=== PATIENT | female | born 1965 | race Caucasian/White ===

== ENCOUNTER 2016-11-27 12:01 | Emergency (ER) | payer BC ==
--- NOTE | 2016-11-27 13:07 | Emergency Department Record ---
History of Present Illness - General Chief complaint: ENT Stated complaint: SWOLLEN NECK Time Seen by Provider: 11/27/16 13:06 Source: Patient Mode of Arrival: Ambulatory Limitations: No limitations - History of Present Illness Initial comments: The patient is here due to an area of swelling under her chin that is red and painful for 2 days. She picked out a hear in the same area 2 days ago and the next day developed the pain. The area is worsening today. She denies any fever, chills, pain with swallowing or voice changes. MD complaint: Other Onset/Timin -: Days(s) Severity scale (1-10): 4 Consistency: Constant Improves with: None Worsens with: None - Related Data Home Medications Medication Instructions Recorded Confirmed Last Taken Atenolol [Tenormin] 50 mg PO DAILY 11/27/16 11/27/16 11/27/16 Levothyroxine Sodium [Synthroid] 100 mcg PO DAILY 11/27/16 11/27/16 11/27/16 Omeprazole [Prilosec] 20 mg PO DAILY 11/27/16 11/27/16 11/27/16 Previous Rx's Medication Instructions Recorded Clindamycin HCl [Cleocin HCl] 300 mg PO QID #28 capsule 11/27/16 Hydrocodone/Acetaminophen [[place] 1 - 2 each PO .EVERY 4-6 HRS PRN 11/27/16 5-325 Tablet] #20 tablet Allergies Allergy/AdvReac Type Severity Reaction Status Date / Time No Known Drug Allergies Allergy Verified 11/27/16 12:55 Travel Screening - Travel/Exposure Within Last 30 Days Have you traveled within the last 30 days?: No - Travel/Exposure Within Last Year Have you traveled outside the [place] in the last year?: No - Additonal Travel Details Have you been exposed to anyone with a communicable illness?: No - Travel Symptoms Symptom Screening: None Review of Systems Constitutional: Denies: Chills, Fever Eyes: Denies: Eye discharge ENT: Denies: Congestion Respiratory: Denies: Cough, Dyspnea Past Medical History - SOCIAL HISTORY Smoking Status: Never smoker Alcohol Use: None Drug Use: None - RESPIRATORY Hx Respiratory Disorders: No - CARDIOVASCULAR Hx Cardio Disorders: No - NEURO Hx Neuro Disorders: No - GI Hx GI Disorders: Yes Hx Reflux: Yes - Hx Genitourinary Disorders: Yes Hx Bladder Problem: Yes - ENDOCRINE Hx Endocrine Disorders: Yes Hx Thyroid Disease: Yes - PSYCH Hx Psych Problems: Yes Hx Depression: Yes - HEMATOLOGY/ONCOLOGY Hx Hematology/Oncology Disorders: No Family Medical History Any Significant Family History?: Yes Hx HTN: Father, Mother Hx Kidney Disease: Father Physical Exam - General General Appearance: Alert, Oriented x3, Cooperative, No acute distress - Head Head exam: Atraumatic, Normocephalic, Normal inspection - Eye Eye exam: Normal appearance - ENT ENT exam: Normal exam, Mucous membranes moist, Normal external ear exam, Normal orophraynx, TM's normal bilaterally Mouth exam: Normal external inspection, Tongue normal (There is no swelling to the floor of the mouth.) Throat exam: Normal inspection. negative: Tonsillar erythema, Tonsillomegaly - Neck Neck exam: Full ROM, Tenderness (There is a 3x3 cm area of erythema, tenderness and swelling just under the R chin R side > Left. ). negative: Normal inspection - Respiratory Respiratory exam: Normal lung sounds bilaterally. negative: Respiratory distress Course Vital Signs 11/27/16 11/27/16 12:51 12:57 Temperature 99.1 F 99.1 F Pulse Rate 69 Pulse Rate [ 68 Pulse Ox Probe] Respiratory 14 14 Rate Blood Pressure 128/84 Blood Pressure 128/84 [Left Arm] Pulse Ox 97 97 - Reevaluation(s) Reevaluation #1: The patient is doing well. I did explain to the lab results to her and the need to return tomorrow. She is to continue the warm compresses as directed. 11/27/16 14:16 Medical Decision Making - Lab Data Result diagrams: 11/27/16 13:46 11/27/16 13:46 Disposition Disposition: Discharge Clinical Impression: Cellulitis and abscess of face Disposition: Home, Self-Care Condition: (1) Good Instructions: Cellulitis (ED) Additional Instructions: Take the clindamycin as directed and Motrin or Irvine for pain. Continue the warm compresses when possible. Please return to the ER in the morning tomorrow for recheck and repeat Abx's. Prescriptions: Clindamycin HCl [Cleocin HCl] 300 mg PO QID #28 capsule Hydrocodone/Acetaminophen [Irvine 5-325 Tablet] 1 - 2 each PO .EVERY 4-6 HRS PRN #20 tablet PRN Reason: Pain Forms: Patient Portal Access Time of Disposition: 14:13
[2016-11-27] MEDS ORDERED: CLINDAMYCIN 600MG/50ML PREMIX 600 MG in DEXTROSE 1 BAG IV ONE (13:15)
[2016-11-27 13:53] LABS: BASO % 0.3 % (0-6); EOS % 0.3 % (0-6); GRAN % 68.7 % (47-80); HEMATOCRIT 37.9 % (35.0-47.0); HEMOGLOBIN 13.3 gm/dl (11.6-16.0); LYMPH % 22.7 % (16-45); MEAN CELL VOLUME 84.2 fl (81-97); MEAN CORPUSCULAR HEMOGLOBIN 29.6 pg (27-33); MEAN CORPUSCULAR HGB CONC 35.1 g/dl (32-36); PLATELET COUNT 246 K/uL (130-400); RED CELL DISTRIBUTION WIDTH 14.6 % (11.5-14.5); WHITE BLOOD COUNT W/O DIFF 6.3 K/uL (4.2-12.2)
[2016-11-27 14:07] LABS: ANION GAP 16.5 (7-16); BLOOD UREA NITROGEN 12 mg/dL (7-17); C-REACTIVE PROTEIN 0.6 mg/dL (0.0-0.9); CARBON DIOXIDE 22.5 mmol/L (22-30); CREATININE 0.7 mg/dL (0.52-1.04); EST GLOMERULAR FILTRATION RATE > 60 ml/min; GLUCOSE,RANDOM 90 mg/dL (70-110)
== END 2016-11-27 14:24 | disposition home or self-care (01) ==
LOC: ER 12:01
DX: L03.221 Cellulitis of neck (principal)
CPT/HCPCS: 80048; 85025; 86140; 96365; 99284

== ENCOUNTER 2016-11-28 09:07 | Emergency (ER) | payer BC ==
[2016-11-28] MEDS ORDERED: CLINDAMYCIN 600MG/4ML VIAL 600 MG in 0.9 % SODIUM CHLORIDE 100ML 100 ML IV ONE (09:39)
--- NOTE | 2016-11-28 09:44 | Emergency Department Record ---
History of Present Illness - General Chief Complaint: Recheck - Other Stated Complaint: RE-CHECK Time Seen by Provider: 11/28/16 09:38 Source: Patient Mode of arrival: Ambulatory Limitations: No limitations - History of Present Illness Initial Comments: 51 yo female returns to ED for a re-evaluation of an infection to the submandibular region. Patient reports that she received IV antibiotics yesterday, but since that time, reports increasing difficulty swallowing her medication and "pain radiating to the right jaw". Patient denies fevers, chills , or recent illness symptoms. MD Complaint: Wound re-check Initial Visit For: Cellulitis Symptoms Since Prior Visit: Other Treatments Prior to Arrival: Given antibiotics on initial visit - Related Data Home Medications Medication Instructions Recorded Confirmed Last Taken Atenolol [Tenormin] 50 mg PO DAILY 11/27/16 11/27/16 11/28/16 Levothyroxine Sodium [Synthroid] 100 mcg PO DAILY 11/27/16 11/27/16 11/28/16 Omeprazole [Prilosec] 20 mg PO DAILY 11/27/16 11/27/16 11/28/16 Previous Rx's Medication Instructions Recorded Clindamycin HCl [Cleocin HCl] 300 mg PO QID #28 capsule 11/27/16 Hydrocodone/Acetaminophen [[place] 1 - 2 each PO .EVERY 4-6 HRS PRN 11/27/16 5-325 Tablet] #20 tablet Allergies Allergy/AdvReac Type Severity Reaction Status Date / Time No Known Drug Allergies Allergy Verified 11/28/16 09:40 Review of Systems Constitutional: Denies: Chills, Fever, Malaise, Night sweats Eyes: Denies: Eye discharge, Eye pain ENT: Denies: Congestion, Ear pain, Epistaxis Respiratory: Denies: Cough, Dyspnea Cardiovascular: Denies: Chest pain, Dyspnea on exertion Endocrine: Denies: Fatigue, Heat or cold intolerance Gastrointestinal: Denies: Abdominal pain, Nausea, Vomiting Genitourinary: Denies: Dysuria, Frequency Musculoskeletal: Denies: Arthralgia, Back pain, Gout, Joint swelling Skin: Denies: Bruising, Change in color, Change in hair/nails Neurological: Denies: Abnormal gait, Confusion, Headache, Seizure Psychiatric: Denies: Anxiety Hematological/Lymphatic: Denies: Anemia, Blood Clots Past Medical History - SOCIAL HISTORY Smoking Status: Never smoker Drug Use: None - RESPIRATORY Hx Respiratory Disorders: No - CARDIOVASCULAR Hx Cardio Disorders: No - NEURO Hx Neuro Disorders: No - GI Hx GI Disorders: Yes Hx Reflux: Yes - Hx Genitourinary Disorders: Yes Hx Bladder Problem: Yes - ENDOCRINE Hx Endocrine Disorders: Yes Hx Thyroid Disease: Yes - PSYCH Hx Psych Problems: Yes Hx Depression: Yes - HEMATOLOGY/ONCOLOGY Hx Hematology/Oncology Disorders: No Family Medical History Hx HTN: Father, Mother Hx Kidney Disease: Father Physical Exam - General General Appearance: Alert, Oriented x3, Cooperative, No acute distress, Other ( patient is well appearing, conversational on examination) Limitations: No limitations - Head Head exam: Atraumatic, Normocephalic, Normal inspection Head exam detail: Other (small 1.5 cm cutaneous abscess to the right submandibular region on examination, no erythema noted, no evidence for phan' s angina on examination). negative: Abrasion, Contusion, Moura's sign, General tenderness, Hematoma, Laceration - Eye Eye exam: Normal appearance. negative: Conjunctival injection, Periorbital swelling, Periorbital tenderness, Scleral icterus - ENT Ear exam: negative: Auricular hematoma, Auricular trauma Nasal Exam: negative: Active bleeding, Discharge, Dried blood, Foreign body Mouth exam: negative: Drooling, Laceration, Muffled voice, Tongue elevation - Neck Neck exam: Other (see above). negative: Meningismus, Tenderness - Respiratory Respiratory exam: Normal lung sounds bilaterally. negative: Respiratory distress, Rhonchi, Stridor - Cardiovascular Cardiovascular Exam: Regular rate, Normal rhythm, Normal heart sounds - GI/Abdominal GI/Abdominal exam: Soft. negative: Pulsatile mass, Rebound, Rigid, Tenderness - Rectal Rectal exam: Deferred - exam: Deferred - Extremities Extremities exam: Normal inspection. negative: Calf tenderness, Pedal edema, Tenderness - Neurological Neurological exam: Alert, Normal gait, Oriented X3 - Psychiatric Psychiatric exam: Normal affect, Normal mood - Skin Skin exam: Normal color. negative: Abrasion Type of lesion: Abscess Distribution of rash: Neck Course Vital Signs 11/28/16 09:26 Temperature 98.8 F Pulse Rate [ 70 Pulse Ox Probe] Respiratory 14 Rate Blood Pressure 134/87 [Left Arm] Pulse Ox 96 - Reevaluation(s) Reevaluation #1: 11/28/16 09:50 Labs reviewed from 11/27/16, grossly unremarkable for an acute process. CT imaging ordered due to patient's description of worsening swallowing symptoms. repeat IV Clindamycin ordered as well. Reevaluation #2: 11/28/16 10:55 CT Soft-tissue neck: Asymmetric thyroid nodule right, small nodule right upper lung. No suspicious lesions in the sub-mandibular region on examination. Patient was updated on all results and the need for follow-up regarding the above findings, appears stable for discharge at this time with continue antibiotic treatment as previously prescribed. Disposition Disposition: Discharge Clinical Impression: Facial cellulitis Disposition: Home, Self-Care Condition: (2) Stable Instructions: Cellulitis (ED) Additional Instructions: Return to ED if your symptoms worsen or if you have any concerns. Continue Clindamycin as previously prescribed. Warm compresses twice daily. Follow-up with your family doctor in 3-5 days as directed. Follow-up ultrasound for possible nodule to the thyroid, and further imaging of the right lung for nodule in the upper lung field. Forms: Patient Portal Access Time of Disposition: 10:58
--- NOTE | 2016-11-29 12:58 | CT SCAN REPORT ---
DATE: 11/28/2016. EXAM: CT SCAN OF THE NECK WITH CONTRAST. HISTORY: The patient has difficulty swallowing. The patient has a lump on the throat under the right side of the chin. TECHNIQUE: Serial axial CT scan of the neck was performed at 2.5 mm intervals from the base of the skull to the thoracic inlet following the intravenous administration of 100 mL of Omnipaque 300. COMPARISON: No comparison CT scans were available. FINDINGS: The vertebral body height, contour, and AP alignment of the cervical spine is within normal limits. The atlantodental interval is within normal limits. There is no CT evidence of a fracture or dislocation of the cervical spine. Mild to moderate degenerative disc disease is noted at the C5-C6 disc space level. The prevertebral soft tissues and parapharyngeal fat are unremarkable. The bilateral parotid glands and submandibular glands are unremarkable. Heterogeneous appearance of the thyroid gland is noted. This is a nonspecific 10 mm nodule within the right thyroid lobe. Ultrasound examination of the thyroid gland can be obtained for further evaluation. There is no CT evidence of cervical lymphadenopathy. A two-vessel arch is noted. The neck vessels are widely patent and unremarkable. The lung windows of the lung apices demonstrate a nonspecific 11 mm nodule within the right upper lobe. Neoplastic etiology cannot be excluded. PET scan can be obtained for further evaluation. The airways are patent. IMPRESSION: 1. NO CT EVIDENCE OF AN ACUTE PROCESS INVOLVING THE CERVICAL SPINE. 2. HETEROGENEOUS APPEARANCE OF THE THYROID GLAND WITH ASYMMETRIC RIGHT THYROID LOBE NODULE NOTED DISCUSSED ABOVE. ULTRASOUND EXAMINATION OF THE THYROID GLAND CAN BE OBTAINED FOR FURTHER EVALUATION. 3. NO CERVICAL LYMPHADENOPATHY IS IDENTIFIED. WITHIN THE REGION OF CLINICAL CONCERN WITHIN THE RIGHT SIDE OF THE NECK, NO SUSPICIOUS UNDERLYING SOLID OR CYSTIC MASSES ARE IDENTIFIED. 4. NONSPECIFIC ISODENSE NODULE IS NOTED WITHIN THE RIGHT UPPER LOBE. NEOPLASTIC ETIOLOGY CANNOT BE EXCLUDED. CT SCAN OF THE CHEST AND/OR PET CT SCAN COULD BE OBTAINED FOR FURTHER EVALUATION. JOB NUMBER: [id number] [facility]
== END 2016-11-28 11:05 | disposition home or self-care (01) ==
LOC: ER 09:07
DX: K12.2 Cellulitis and abscess of mouth (principal); R13.10 Dysphagia, unspecified
CPT/HCPCS: 99284 ×2; 96365; 70491; Q9967

== ENCOUNTER 2017-03-19 18:44 | Emergency (ER) | payer BC ==
--- NOTE | 2017-03-19 19:38 | Emergency Department Record ---
History of Present Illness - General Chief complaint: Facial Swelling Stated complaint: RT SIDE FACE SWELLING/PAIN Time Seen by Provider: 03/19/17 19:01 Source: Patient, Family Mode of Arrival: Ambulatory Limitations: No limitations - History of Present Illness Initial Comments: pt fell onto right shoulder and face on to cement in [facility] [place] a week ago. pain and swelling have increased along face and neck Complaint: Facial swelling Onset/Timin -: Week(s) Exposure: Other Symptoms: Facial swelling, Other Severity: Moderate Treatment Prior to Arrival: Other - Related Data Home Medications Medication Instructions Recorded Confirmed Last Taken Atenolol [Tenormin] 50 mg PO DAILY 11/27/16 03/19/17 11/28/16 Levothyroxine Sodium [Synthroid] 100 mcg PO DAILY 11/27/16 03/19/17 11/28/16 Omeprazole [Prilosec] 20 mg PO DAILY 11/27/16 03/19/17 11/28/16 Sertraline HCl [Zoloft] 100 mg PO DAILY 03/19/17 03/19/17 Unknown Previous Rx's Medication Instructions Recorded Cephalexin [Keflex] 500 mg PO QID #30 cap 03/19/17 Hydrocodone/Acetaminophen [Powell 1 each PO QID #10 tablet 03/19/17 5-325 Tablet] Allergies Allergy/AdvReac Type Severity Reaction Status Date / Time No Known Drug Allergies Allergy Verified 11/28/16 09:40 Travel Screening - Travel/Exposure Within Last 30 Days Have you traveled within the last 30 days?: Yes Location Detail:: [facility] - Travel/Exposure Within Last Year Have you traveled outside the [place] in the last year?: No - Travel Symptoms Symptom Screening: None Review of Systems Reviewed: No additional complaints except as noted below Constitutional: Reports: As per HPI. Denies: Chills, Fever, Malaise, Night sweats, Weakness, Weight change Eyes: Reports: As per HPI. Denies: Eye discharge, Eye pain, Photophobia, Vision change ENT: Reports: As per HPI. Denies: Congestion, Dental pain, Ear pain, Epistaxis , Hearing loss, Throat pain Respiratory: Reports: As per HPI. Denies: Cough, Dyspnea, Hemoptysis, Stridor, Wheezes Cardiovascular: Reports: As per HPI. Denies: Arrhythmia, Chest pain, Dyspnea on exertion, Edema, Murmurs, Orthopnea, Palpitations, Paroxysmal nocturnal dyspnea, Rheumatic Fever, Syncope Endocrine: Reports: As per HPI. Denies: Fatigue, Heat or cold intolerance, Polydipsia, Polyuria Gastrointestinal: Reports: As per HPI. Denies: Abdominal pain, Constipation, Diarrhea, Hematemesis, Hematochezia, Melena, Nausea, Vomiting Genitourinary: Reports: As per HPI. Denies: Abnormal menses, Discharge, Dyspareunia, Dysuria, Frequency, Hematuria, Incontinence, Retention, Urgency Musculoskeletal: Reports: As per HPI. Denies: Arthralgia, Back pain, Gout, Joint swelling, Myalgia, Neck pain Skin: Reports: As per HPI. Denies: Bruising, Change in color, Change in hair/ nails, Lesions, Pruritus, Rash Neurological: Reports: As per HPI. Denies: Abnormal gait, Confusion, Headache, Numbness, Paresthesias, Seizure, Tingling, Tremors, Vertigo, Weakness Psychiatric: Reports: As per HPI. Denies: Anxiety, Auditory hallucinations, Depression, Homicidal thoughts, Suicidal thoughts, Visual hallucinations Hematological/Lymphatic: Reports: As per HPI. Denies: Anemia, Blood Clots, Easy bleeding, Easy bruising, Swollen glands Past Medical History - SOCIAL HISTORY Smoking Status: Never smoker Alcohol Use: None Drug Use: None - RESPIRATORY Hx Respiratory Disorders: No Comment:: nodules on lungs - CARDIOVASCULAR Hx Cardio Disorders: No - NEURO Hx Neuro Disorders: No - GI Hx GI Disorders: Yes Hx Reflux: Yes - Hx Genitourinary Disorders: Yes Hx Bladder Problem: Yes - ENDOCRINE Hx Endocrine Disorders: Yes Hx Thyroid Disease: Yes Comment:: nodules on thyroid - PSYCH Hx Psych Problems: Yes Hx Depression: Yes - HEMATOLOGY/ONCOLOGY Hx Hematology/Oncology Disorders: No Family Medical History Any Significant Family History?: Yes Hx HTN: Father, Mother Hx Kidney Disease: Father Physical Exam - General General Appearance: Alert, Oriented x3, Cooperative, Mild distress - Head Head exam: Normal inspection Head exam detail: Abrasion, Contusion, Hematoma Image of Face/Head: 1 - swelling, tenderness, erythema - Eye Eye exam: Normal appearance, PERRL, EOMI Pupils: Normal accommodation - ENT ENT exam: Normal exam, Mucous membranes moist, Normal external ear exam, Normal orophraynx, TM's normal bilaterally Ear exam: Normal external inspection. negative: External canal tenderness Nasal Exam: Normal inspection. negative: Discharge, Sinus tenderness Mouth exam: Normal external inspection, Tongue normal Teeth exam: Normal inspection. negative: Dental caries Throat exam: Normal inspection. negative: Tonsillar erythema, Tonsillar exudate - Neck Neck exam: Normal inspection, Full ROM, Tenderness - Respiratory Respiratory exam: Normal lung sounds bilaterally. negative: Respiratory distress - Cardiovascular Cardiovascular Exam: Regular rate, Normal rhythm, Normal heart sounds - GI/Abdominal GI/Abdominal exam: Soft, Normal bowel sounds. negative: Tenderness - Rectal Rectal exam: Deferred - exam: Deferred - Extremities Extremities exam: Normal inspection, Full ROM, Normal capillary refill. negative: Tenderness - Back Back exam: Reports: Normal inspection, Full ROM. Denies: Muscle spasm, Rash noted, Tenderness - Neurological Neurological exam: Alert, CN II-XII intact, Normal gait, Oriented X3 - Psychiatric Psychiatric exam: Normal affect, Normal mood - Skin Skin exam: Dry, Intact, Normal color, Warm Course Vital Signs 03/19/17 18:51 Temperature 98.7 F Pulse Rate 64 Respiratory 20 Rate Blood Pressure 161/93 Pulse Ox 99 Medical Decision Making - Management Options MDM Management: Additional Work-up Planned (e.g. ADM/Transfer/OP Study) - Data Complexity MDM Data: Labs Ordered and/or Reviewed, X-Ray Ordered and/or Reviewed - Lab Data Result diagrams: 03/19/17 19:45 03/19/17 19:45 - Radiology Data Radiology results: Report reviewed, Image reviewed Disposition Disposition: Discharge Clinical Impression: Multiple contusions Cellulitis Qualifiers: Site of cellulitis: face Qualified Code(s): L03.211 - Cellulitis of face Disposition: Home, Self-Care Condition: (1) Good Instructions: Contusion in Adults (ED), Cellulitis (ED) Additional Instructions: follow up with family doctor. return sooner if worse. Prescriptions: Cephalexin [Keflex] 500 mg PO QID #30 cap Hydrocodone/Acetaminophen [Powell 5-325 Tablet] 1 each PO QID #10 tablet Forms: Patient Portal Access
[2017-03-19 19:53] LABS: BASO % 0.4 % (0-6); EOS % 0.3 % (0-6); GRAN % 66.5 % (47-80); HEMATOCRIT 37.9 % (35.0-47.0); HEMOGLOBIN 12.9 gm/dl (11.6-16.0); LYMPH % 23.3 % (16-45); MEAN CELL VOLUME 84.4 fl (81-97); MEAN CORPUSCULAR HEMOGLOBIN 28.7 pg (27-33); MEAN PLATELET VOLUME 9.6 fl (7.4-10.4); MONO % 9.5 % (0-9); PLATELET COUNT 274 K/uL (130-400); RED BLOOD COUNT 4.49 M/uL (3.80-5.40); RED CELL DISTRIBUTION WIDTH 15.5 % (11.5-14.5); WHITE BLOOD COUNT W/O DIFF 6.7 K/uL (4.2-12.2)
[2017-03-19 20:04] LABS: ANION GAP 5.8 (7-16); BLOOD UREA NITROGEN 13 mg/dL (7-17); CARBON DIOXIDE 26.2 mmol/L (22-30); CREATININE 0.8 mg/dL (0.52-1.04); EST GLOMERULAR FILTRATION RATE > 60 ml/min; GLUCOSE,RANDOM 90 mg/dL (70-110)
[2017-03-19] MEDS ORDERED: HYDROCODONE/APAP 5/325MG TABLET PO ONE (20:49)
[2017-03-19] MEDS ORDERED: CEPHALEXIN 500 MG CAPSULE PO STA (20:49)
--- NOTE | 2017-03-24 13:18 | RADIOLOGY REPORT ---
EXAM: CHEST, TWO VIEWS HISTORY: FELL ONE WEEK AGO, RIGHT SIDE PAIN. TECHNIQUE: Two views of the chest were obtained. Comparison: Chest x-ray 06/30/12. Encounter: Initial. FINDINGS: The lungs are clear. Small calcified granuloma right base. The cardiac silhouette and diaphragm are unremarkable. No displaced rib fractures. IMPRESSION: NO ACUTE INTRATHORACIC PROCESS. JOB NUMBER: [id number] [facility]
--- NOTE | 2017-03-24 13:24 | CT SCAN REPORT ---
EXAM: NECK CT WITH IV CONTRAST HISTORY: FELL ONE WEEK AGO, RIGHT SIDE FACE AND NECK PAIN/SWELLING. TECHNIQUE: Contiguous axial images from the skull base to the sherie were obtained after the uneventful intravenous administration of 100 ml of Omnipaque 300. Comparison: Neck CT 11/28/16. FINDINGS: The skull base is unremarkable. The nasopharynx, oropharynx, and hypopharynx are unremarkable. The laryngeal structures are symmetric. The left lobe of the thyroid gland is asymmetrically enlarged extending into the isthmus. Hypodense nodule lower right thyroid lobe measures 13 mm. Isodense nodule in the lower left thyroid lobe measuring 17 mm. The parotid glands are unremarkable. The submandibular glands are unremarkable. No enlarged cervical lymph nodes. No hematoma or abscess. The vascular structures are patent. The lung apices are clear. Slight reversal of the normal cervical lordosis. No fracture or subluxation of the cervical spine. Partially visualized nodule right upper lobe measuring 11 mm unchanged from prior study. IMPRESSION: 1. NO ACUTE PROCESS OF THE NECK IDENTIFIED. NO CHANGE FROM PRIOR STUDY. 2. TWO THYROID NODULES UNCHANGED FROM PRIOR STUDY. SLIGHT ASYMMETRIC ENLARGEMENT OF THE LEFT LOBE OF THE THYROID MAY REFLECT GOITER. 3. 11 MM RIGHT UPPER LOBE LUNG NODULE UNCHANGED FROM PRIOR STUDY. JOB NUMBER: [id number] [facility]
--- NOTE | 2017-03-24 13:29 | CT SCAN REPORT ---
EXAM: CRANIOFACIAL CT WITH TWO DIMENSIONAL REFORMATS WITH CONTRAST HISTORY: FELL ONE WEEK AGO. RIGHT SIDE FACE AND NECK PAIN. TECHNIQUE: Contiguous axial images from the level of the mid lateral ventricles to the mental protuberance were obtained after the uneventful intravenous administration of 100 ml of Omnipaque 300. Sagittal and coronal two dimensional reformatted images were also obtained. Comparison: Neck CT 11/28/16. FINDINGS: The globes are normal. No inflammatory fat stranding in the visualized face. The orbits, nasal bones, liu of the maxillary antra, zygomatic arches, and mandible are all intact. Mild mucosal thickening left maxillary sinus. IMPRESSION: 1. NO ACUTE PROCESS OF THE MAXILLA OR FACE IDENTIFIED. 2. MILD MUCOSAL THICKENING LEFT MAXILLARY SINUS. 3. NO FRACTURES. JOB NUMBER: [id number] [facility]
== END 2017-03-19 21:13 | disposition home or self-care (01) ==
LOC: ER 18:44
DX: S01.81XA Laceration without foreign body of other part of head, initial encounter (principal); S00.93XA Contusion of unspecified part of head, initial encounter; S40.011A Contusion of right shoulder, initial encounter; S10.93XA Contusion of unspecified part of neck, initial encounter; L03.211 Cellulitis of face; M25.511 Pain in right shoulder; W19.XXXA Unspecified fall, initial encounter
CPT/HCPCS: 99283; 99284; 85025; 80048; 71020; 70486; 70491; Q9967

== ENCOUNTER 2019-08-12 17:39 | Emergency (ER) | payer BC ==
[2019-08-12] MEDS ORDERED: ONDANSETRON HCL IV 4 MG/2 ML VIAL IVP ONE (17:43)
[2019-08-12] MEDS ORDERED: 0.9 % SODIUM CHLORIDE 1000ML 1,000 ML IV SCH (17:45)
--- NOTE | 2019-08-12 17:53 | Emergency Department Record ---
History of Present Illness - General Stated complaint: VOMITTING,DIARRHEA,BODY ACHESTRAVELED OUT OF STATE Time Seen by Provider: 08/12/19 17:42 Source: Patient Mode of Arrival: Ambulatory Limitations: No limitations - History of Present Illness Initial comments: 54 yo female presents to ED for evaluation of nausea, vomiting, and loose stools that began approximately 36 hours ago upon returning form [place]. Patient denies fevers, chills, abdominal pain, or urinary symptoms. Patient does report partial colectomy 1 year ago for a "bowel blockage", also reports previous hy sterectomy. Patient also reports history of treated HTN. MD complaint: Diarrhea, Nausea, Vomiting Onset/Timin -: Hour(s) Description of Diarrhea: Water Associated Abdominal Pain: No Severity: Moderate Consistency: Intermittent Improves with: None Worsens with: Eating Context: Possible food poisoning Associated Symptoms: Denies other symptoms - Related Data Home Medications Medication Instructions Recorded Confirmed Last Taken Rosuvastatin Calcium [Crestor] 10 mg PO DAILY 08/12/19 08/12/19 1 Day Ago ~08/11/19 Allergies Allergy/AdvReac Type Severity Reaction Status Date / Time No Known Drug Allergies Allergy Verified 08/12/19 18:07 Review of Systems Constitutional: Denies: Chills, Fever, Malaise, Night sweats Eyes: Denies: Eye discharge, Eye pain ENT: Denies: Congestion, Ear pain, Epistaxis Respiratory: Denies: Cough, Dyspnea Cardiovascular: Denies: Chest pain, Dyspnea on exertion Endocrine: Denies: Fatigue, Heat or cold intolerance Gastrointestinal: Reports: Diarrhea, Nausea, Vomiting. Denies: Abdominal pain, Constipation Genitourinary: Denies: Incontinence, Retention Musculoskeletal: Denies: Arthralgia, Back pain Skin: Denies: Bruising, Change in color Neurological: Denies: Abnormal gait, Confusion, Headache, Tingling, Tremors Psychiatric: Denies: Anxiety Hematological/Lymphatic: Denies: Anemia, Blood Clots Past Medical History - SOCIAL HISTORY Smoking Status: Never smoker Drug Use: None - RESPIRATORY Hx Respiratory Disorders: No Comment:: nodules on lungs - CARDIOVASCULAR Hx Cardio Disorders: No - NEURO Hx Neuro Disorders: No - GI Hx GI Disorders: Yes Hx Reflux: Yes - Hx Genitourinary Disorders: Yes Hx Bladder Problem: Yes - ENDOCRINE Hx Endocrine Disorders: Yes Hx Thyroid Disease: Yes Comment:: nodules on thyroid - PSYCH Hx Psych Problems: Yes Hx Depression: Yes - HEMATOLOGY/ONCOLOGY Hx Hematology/Oncology Disorders: No Family Medical History Hx HTN: Father, Mother Hx Kidney Disease: Father Physical Exam - General General Appearance: Alert, Oriented x3, Cooperative, Mild distress Limitations: No limitations - Head Head exam: Atraumatic, Normocephalic, Normal inspection Head exam detail: negative: Abrasion, Contusion, Moura's sign, General tenderness, Hematoma, Laceration - Eye Eye exam: Normal appearance. negative: Conjunctival injection, Periorbital swelling, Periorbital tenderness, Scleral icterus - ENT Ear exam: negative: Auricular hematoma, Auricular trauma Nasal Exam: negative: Active bleeding, Discharge, Dried blood, Foreign body Mouth exam: negative: Drooling, Laceration, Muffled voice, Tongue elevation - Neck Neck exam: Normal inspection. negative: Meningismus, Tenderness - Respiratory Respiratory exam: Normal lung sounds bilaterally. negative: Respiratory distress, Rhonchi, Stridor, Wheezes - Cardiovascular Cardiovascular Exam: Regular rate, Normal rhythm, Normal heart sounds - GI/Abdominal GI/Abdominal exam: Soft, Other (No pain on examination). negative: Rebound, Rigid, Tenderness - Rectal Rectal exam: Deferred - exam: Deferred - Extremities Extremities exam: Normal inspection. negative: Pedal edema, Tenderness - Back Back exam: Denies: CVA tenderness (R), CVA tenderness (L) - Neurological Neurological exam: Alert, Normal gait, Oriented X3 - Psychiatric Psychiatric exam: Normal affect, Normal mood - Skin Skin exam: Normal color. negative: Abrasion Type of lesion: negative: abrasion Course Vital Signs 08/12/19 17:47 Temperature 98.1 F Pulse Rate [ 73 Pulse Ox Probe] Respiratory 16 Rate Blood Pressure 155/95 [Left Arm] Pulse Ox 98 - Reevaluation(s) Reevaluation #1: 08/12/19 17:52 Patient was seen and examined IVFs, anti-emetics, and laboratory studies. Patient's abdominal examination id benign, no clinical evidence for an acute surgical process. CT imaging is not felt to be indicated based on the patient's initial examination. Will provide symptomatic treatment and reassess. Reevaluation #2: 08/12/19 18:25 Laboratory studies were reviewed and appear grossly unremarkable for an acute process. Reevaluation #3: 08/12/19 19:14 Patient was reassessed and updated on all results, reports that she is feeling much better. Repeat abdominal examination is benign, no pain with palpation. Patient appears stable for discharge with continued symptomatic treatment as directed. Medical Decision Making - Lab Data Result diagrams: 08/12/19 17:50 08/12/19 17:50 Disposition Disposition: Discharge Clinical Impression: Nausea vomiting and diarrhea Disposition: Home, Self-Care Condition: (2) Stable Instructions: Acute Nausea and Vomiting (ED) Additional Instructions: Return to ED if your symptoms worsen or if you have any concerns. Ary as directed. Follow-up with your family doctor in 3-5 days as directed. Time of Disposition: 19:15 Quality - Quality Measures Quality Measures: N/A - Blood Pressure Screening Does Patient Have Any of the Following: Active Dx of HTN Blood Pressure Classification: Hypertensive Reading Systolic Measurement: 155 Diastolic Measurement: 95 Screening for High Blood Pressure: Patient Exclusion, Hx of HTN [G9744]
[2019-08-12 18:03] LABS: ABSOLUTE NEUTROPHIL COUNT 4.53; HEMATOCRIT 37.1 % (35.0-47.0); HEMOGLOBIN 12.4 gm/dl (11.6-16.0); LYMPH % 12.4 % (16-45); MEAN CELL VOLUME 83.7 fl (81-97); MEAN CORPUSCULAR HGB CONC 33.4 g/dl (32-36); MONO % 7.4 % (0-9); PLATELET COUNT 215 K/uL (130-400); RED BLOOD COUNT 4.43 M/uL (3.80-5.40); RED CELL DISTRIBUTION WIDTH 16.8 % (11.5-14.5); WHITE BLOOD COUNT W/O DIFF 5.7 K/uL (4.2-12.2)
[2019-08-12 18:16] LABS: BLOOD UREA NITROGEN 18 mg/dL (6-20); CREATININE 0.8 mg/dL (0.5-0.9); EST GLOMERULAR FILTRATION RATE > 60 mL/min
[2019-08-12 18:17] LABS: LIPASE 25 U/L (13-60); TOTAL PROTEIN 7.8 g/dL (6.6-8.7)
[2019-08-12 18:19] LABS: GLUCOSE,RANDOM 125 mg/dL (74-109)
[2019-08-12 18:20] LABS: URINE APPEARANCE CLEAR; URINE BILIRUBIN SMALL (NEGATIVE); URINE BLOOD SMALL (NEGATIVE); URINE COLOR YELLOW; URINE GLUCOSE (UA) NEGATIVE (NEGATIVE); URINE KETONE NEGATIVE (NEGATIVE); URINE LEUKOCYTE ESTERASE NEGATIVE (NEGATIVE); URINE NITRITE NEGATIVE (NEGATIVE); URINE PROTEIN TRACE (NEGATIVE); URINE UROBILINOGEN 0.2 E.U./dL (0.20 - 1.00)
[2019-08-12 18:22] LABS: ALBUMIN 5.2 g/dL (4.0-5.0); ALKALINE PHOSPHATASE 84 U/L (35-104); ALT/SGPT 31 U/L (<33); AST/SGOT 28 U/L (10.0-35.0)
[2019-08-12 18:33] LABS: URINE MUCUS MODERATE; URINE WBC 0 - 2 (0-2/hpf)
== END 2019-08-12 19:31 | disposition home or self-care (01) ==
LOC: ER 17:39
DX: R11.2 Nausea with vomiting, unspecified (principal); R19.7 Diarrhea, unspecified; I10 Essential (primary) hypertension
CPT/HCPCS: 99284 ×2; 96374; 96361; 83690; 85025; 80053; 81001; J2405; J7030

== ENCOUNTER 2019-11-09 07:56 | Emergency (ER) | payer BC ==
[2019-11-09] MEDS ORDERED: 0.9 % SODIUM CHLORIDE 1,000 ML BAG IV ONE (08:15)
[2019-11-09] MEDS ORDERED: ACETAMINOPHEN 1,000 MG/100 ML BTL IVPB ONE (08:15)
--- NOTE | 2019-11-09 08:22 | Emergency Department Record ---
History of Present Illness - General Chief Complaint: Difficulty Breathing Stated Complaint: OLLIE Time Seen by Provider: 11/09/19 08:07 Source: Patient Mode of Arrival: Ambulatory Limitations: No limitations - History of Present Illness Initial Comments: The patient is here due to a cough and congestion for a week. She was seen at an a week ago and had a normal xray but was treated with a Zpak and oral steroids. She did get better for a few days but then seemed to worsen over the last 3 days. Now she is having fevers, a worse cough, SEARS when she coughs and mild SOB. The patient denies any neck or back pain, vomiting, CP or diarrhea. She is still coughing up thick phlegm per the patient at times. MD Complaint: Cough Onset/Timin -: Week(s) Improves With: Nothing Worsens With: Nothing Context: Recent URI, Other Associated Symptoms: Cough - Related Data Home Medications Medication Instructions Recorded Confirmed Last Taken Methylprednisolone [Medrol Dose 4 mg PO DAILY 11/09/19 11/09/19 11/09/19 Pack] Previous Rx's Medication Instructions Recorded Albuterol Sulfate [Proair Hfa] 2 puff IH QID PRN #1 inhaler 11/09/19 Doxycycline Monohydrate [Mondoxyne 100 mg PO BID 7 Days #14 capsule 11/09/19 Nl] Allergies Allergy/AdvReac Type Severity Reaction Status Date / Time No Known Drug Allergies Allergy Verified 08/12/19 18:07 Travel Screening - Travel/Exposure Within Last 30 Days Have you traveled within the last 30 days?: No - Travel/Exposure Within Last Year Have you traveled outside the [place] in the last year?: No - Additonal Travel Details Have you been exposed to anyone with a communicable illness?: No - Travel Symptoms Symptom Screening: Fever (Subjective), Headache Review of Systems Constitutional: Reports: Fever, Malaise. Denies: Chills Eyes: Denies: Eye discharge ENT: Reports: Congestion Respiratory: Reports: Cough, Dyspnea. Denies: Hemoptysis, Stridor Cardiovascular: Denies: Chest pain Endocrine: Reports: Fatigue Gastrointestinal: Denies: Nausea Genitourinary: Denies: Dysuria Musculoskeletal: Denies: Arthralgia Skin: Denies: Bruising Past Medical History - SOCIAL HISTORY Smoking Status: Never smoker Alcohol Use: None Drug Use: None - RESPIRATORY Hx Respiratory Disorders: Yes Hx Bronchitis: Yes Hx Pneumonia: Yes Comment:: nodules on lungs - CARDIOVASCULAR Hx Cardio Disorders: No Hx Hypertension: Yes Comment:: recent stress test and referred to [facility] bearing bro[facility] - NEURO Hx Neuro Disorders: No - GI Hx GI Disorders: Yes Hx Reflux: Yes - Hx Genitourinary Disorders: Yes Hx Bladder Problem: Yes - ENDOCRINE Hx Endocrine Disorders: Yes Hx Thyroid Disease: Yes Comment:: nodules on thyroid - PSYCH Hx Psych Problems: Yes Hx Depression: Yes - HEMATOLOGY/ONCOLOGY Hx Hematology/Oncology Disorders: No Family Medical History Any Significant Family History?: No Hx HTN: Father, Mother Hx Kidney Disease: Father Physical Exam - General General Appearance: Alert, Oriented x3, Cooperative, No acute distress - Head Head exam: Atraumatic, Normocephalic, Normal inspection - Eye Eye exam: Normal appearance - ENT ENT exam: Normal exam, Mucous membranes moist, Normal external ear exam, Normal orophraynx, TM's normal bilaterally Throat exam: Normal inspection. negative: Tonsillar erythema, Tonsillar exudate - Neck Neck exam: Normal inspection, Full ROM. negative: Lymphadenopathy, Meningismus (The neck is very supple.), Tenderness - Respiratory Respiratory exam: Normal lung sounds bilaterally. negative: Respiratory distress, Rhonchi, Stridor, Wheezes - Cardiovascular Cardiovascular Exam: Regular rate, Normal rhythm, Normal heart sounds - GI/Abdominal GI/Abdominal exam: Soft, Normal bowel sounds. negative: Tenderness - Extremities Extremities exam: Normal inspection, Full ROM, Normal capillary refill. negative: Tenderness - Back Back exam: Denies: Normal inspection - Neurological Neurological exam: Alert, Normal gait, Oriented X3, Other (Neg Kernig's and Brudsinski's reflexes.). negative: Abnormal gait, Altered, Motor sensory deficit - Psychiatric Psychiatric exam: negative: Anxious - Skin Skin exam: negative: Rash Course Vital Signs 11/09/19 07:59 Temperature 100.0 F H Pulse Rate 81 Respiratory 20 Rate Blood Pressure 138/90 Pulse Ox 98 - Reevaluation(s) Reevaluation #1: The patient is doing better at this time. Her repeat temp is 98.9 orally and she denies any SEARS or ANY neck or back pain. She does have some pain around her eyes but no head pain. I did discuss the neg xrays and the lab results with the patient. Her lab and xray results do point to a viral process but do to the extent of her cough we will place her on Doxycycline to treat for an atypical infection. 11/09/19 09:15 Reevaluation #2: Again the patient is doing a lot better. She states her breathing is much improved after the breathing tx. On exam her lungs are clear with no wheezing or rhonchi. We will discharge the patient on the Doxycycline along with the Albuterol inhaller. She is to see her PCP early next week for recheck and will need to return for any worsening issues. 11/09/19 09:33 Medical Decision Making - Lab Data Result diagrams: 11/09/19 08:10 11/09/19 08:10 Disposition Disposition: Discharge Clinical Impression: URI, acute Disposition: Home, Self-Care Condition: (2) Stable Instructions: Upper Respiratory Infection (ED) Additional Instructions: Please use Tylenol and Motrin for fever and drink plenty of fluids. Please continue the Doxycycline with the Albuterol MDI as directed. Return to the ER for any worsening cough, shortness of breath, temp >103, or severe headache. Prescriptions: Doxycycline Monohydrate [Mondoxyne Nl] 100 mg PO BID 7 Days #14 capsule Albuterol Sulfate [Proair Hfa] 2 puff IH QID PRN #1 inhaler PRN Reason: Cough And Difficulty Breathing Forms: Patient Portal Access Time of Disposition: 09:36 Quality - Quality Measures Quality Measures: N/A - Blood Pressure Screening View Details: Yes Does Patient Have Any of the Following: No Blood Pressure Classification: Pre-Hypertensive BP Reading Systolic Measurement: 121 Diastolic Measurement: 78 Screening for High Blood Pressure: < Pre-Hypertensive BP, F/U Documented > [G8950] Pre-Hypertensive Follow-up Interventions: Referral to alternative/primary care provider.
[2019-11-09 08:27] LABS: ABSOLUTE NEUTROPHIL COUNT 16.06; HEMATOCRIT 41.2 % (35.0-47.0); HEMOGLOBIN 14.1 gm/dl (11.6-16.0); MEAN CELL VOLUME 81.3 fl (81-97); MEAN CORPUSCULAR HEMOGLOBIN 27.8 pg (27-33); MEAN CORPUSCULAR HGB CONC 34.2 g/dl (32-36); MEAN PLATELET VOLUME 9.3 fl (7.4-10.4); PLATELET COUNT 250 K/uL (130-400); RED BLOOD COUNT 5.07 M/uL (3.80-5.40); RED CELL DISTRIBUTION WIDTH 15.8 % (11.5-14.5); WHITE BLOOD COUNT W/O DIFF 18.5 K/uL (4.2-12.2)
[2019-11-09 08:36] LABS: BLOOD UREA NITROGEN 15 mg/dL (6-20); CREATININE 0.9 mg/dL (0.5-0.9); EST GLOMERULAR FILTRATION RATE > 60 mL/min
[2019-11-09 08:37] LABS: TOTAL PROTEIN 7.9 g/dL (6.6-8.7)
[2019-11-09 08:39] LABS: GLUCOSE,RANDOM 122 mg/dL (74-109)
[2019-11-09 08:41] LABS: ALB/GLOB RATIO 1.4 (1.1-1.8); ALBUMIN 4.6 g/dL (4.0-5.0); ALT/SGPT 33 U/L (<33); AST/SGOT 22 U/L (10.0-35.0)
[2019-11-09 08:42] LABS: ALKALINE PHOSPHATASE 99 U/L (35-104); PLATELET ESTIMATE NORMAL (NORMAL)
[2019-11-09 08:45] LABS: INFLUENZA A NEGATIVE (NEGATIVE); INFLUENZA B NEGATIVE (NEGATIVE)
[2019-11-09] MEDS ORDERED: KETOROLAC 30 MG/ML VIAL IVP ONE (08:47)
--- NOTE | 2019-11-09 08:56 | RADIOLOGY REPORT ---
EXAMINATION: Two View Chest Radiographs EXAM DATE: 11/09/2019 8:45 AM TECHNIQUE: Frontal and lateral views INDICATION: cough COMPARISON: Chest radiograph 03/19/2017 ENCOUNTER: Not applicable FINDINGS: The heart, mediastinum, and pulmonary vasculature are normal. A round well-circumscribed 1.3 cm right perihilar pulmonary nodule appears unchanged since 2017. No lung consolidation or pleural effusions are present. No pneumothorax. Osseous structures are intact. Markings are within normal limits. IMPRESSION: No acute cardiopulmonary disease is present. Dictated by: Edgar White DO on 11/09/2019 8:51 AM. .
[2019-11-09 09:04] LABS: C-REACTIVE PROTEIN 1.08 mg/dL (<0.5)
[2019-11-09] MEDS ORDERED: ALBUTEROL SULFATE (0.083%) 2.5 MG/3 ML NEB INH ONE (09:11)
[2019-11-09] MEDS ORDERED: DOXYCYCLINE HYCLATE 100 MG CAPSULE PO ONE (09:14)
== END 2019-11-09 09:49 | disposition home or self-care (01) ==
LOC: ER 07:56
DX: J06.9 Acute upper respiratory infection, unspecified (principal); R06.00 Dyspnea, unspecified; R51 Headache; R05 Cough; R50.9 Fever, unspecified
CPT/HCPCS: 99284; 96365; 96375; 99285; 86140; 80053; 87400; 84145; 85027; 71046; 94640; J1885; J7030; J7613